=== PATIENT | male | born 1950 | race Caucasian/White ===

== ENCOUNTER → 2017-08-29 | Outpatient (CLI) | payer MEDICARE, OTHER | LOC: M.CT 10:25 | DX: M47.892 Other spondylosis, cervical region (principal); M25.78 Osteophyte, vertebrae; M48.02 Spinal stenosis, cervical region ==

== ENCOUNTER 2019-01-11 08:12 | Emergency (ER) | payer MEDICARE, OTHER ==
[~2019-01-11] VITALS: Ht 177.8 cm; Wt 108.9 kg
[2019-01-11] MEDS ORDERED: DIOVAN320 MG PO (08:21)
[2019-01-11 08:54] LABS: HEMATOCRIT 45.9 % (42.0-52.0); HEMOGLOBIN 15.5 gm/dL (14.0-18.0); MCH 32.1 pg (26.0-34.0); MCHC 33.8 g/dL (28.0-37.0); MCV 94.9 fL (80.0-100.0); MPV 7.7 fl. (7.2-11.1); NUCLEATED RBCS 0 /100WBC; PLATELET COUNT* 197 thou/uL (150-400); RBC 4.83 mil/uL (4.50-6.00); RDW-CV 14.2 % (10.5-14.5); WBC 6.3 thou/uL (4.0-11.0)
[2019-01-11 09:05] LABS: CALCIUM 8.9 mg/dL (8.5-10.1); CREATININE 1.6 mg/dL (0.6-1.3); POTASSIUM 4.2 mmol/L (3.5-5.1)
[2019-01-11 09:09] LABS: ALBUMIN 3.7 g/dL (3.4-5.0); TOTAL BILIRUBIN 0.4 mg/dL (<0.1-1.0)
[2019-01-11 09:45] LABS: ABSOLUTE LYMPHOCYTES 0.4 thou/uL (0.8-5.3); ABSOLUTE MONOCYTES 0.2 thou/uL (0.0-1.2); ABSOLUTE NEUTROPHILS 5.7 thou/uL (1.6-8.1); PLATELET ESTIMATE ADEQUATE
[2019-01-11 10:09] LABS: ESR (SEDRATE) 21 mm/hr (0-20)
[2019-01-11] MEDS ORDERED: CLEOCIN HCL300 MG PO (10:22)
[2019-01-11] MEDS ORDERED: HYDROCODON-ACE1 EAC7 PO (10:22)
[2019-01-11] MEDS ORDERED: PENICILLIN V P500 MG PO (10:22)
[2019-01-11 10:35] VITALS: BP 137/68
== END 2019-01-11 10:36 | disposition home or self-care (01) ==
LOC: M.ERS 08:12
PROVIDERS: Emergency Medicine
DX: L03.211 Cellulitis of face (principal); Z95.818 Presence of other cardiac implants and grafts; Z98.890 Other specified postprocedural states; Z88.5 Allergy status to narcotic agent

== ENCOUNTER 2019-05-22 08:43 | Emergency (ER) | payer MEDICARE, OTHER ==
[~2019-05-22] VITALS: Ht 177.8 cm; Wt 113.4 kg
[~2019-05-22 08:43] MED LIST: CLEOCIN HCL300 MG PO; DIOVAN320 MG PO; HYDROCODON-ACE1 EAC7 PO; PENICILLIN V P500 MG PO
[2019-05-22] MEDS ORDERED: CELEBREX 200 M200 M1 PO (08:56)
[2019-05-22] MEDS ORDERED: NORCO 5-325 TA1 EAC1 PO (10:01)
[2019-05-22] MEDS ORDERED: MEDROLDOSEPACK PO (10:01)
[2019-05-22 10:21] VITALS: BP 189/90
== END 2019-05-22 10:22 | disposition home or self-care (01) ==
LOC: M.ERS 08:43
DX: M13.871 Other specified arthritis, right ankle and foot (principal); M25.474 Effusion, right foot; Z88.5 Allergy status to narcotic agent

== ENCOUNTER → 2019-12-26 | Outpatient (CLI) | payer MEDICARE, OTHER ==
[~2019-12-26] MED LIST changes: +CELEBREX 200 M200 M1 PO; +MEDROLDOSEPACK PO; +NORCO 5-325 TA1 EAC1 PO
== END ==
LOC: M.LAB 07:08
PROVIDERS: ATTEND Internal Medicine Gastroenterology
DX: Z01.812 Encounter for preprocedural laboratory examination (principal); Z11.59 Encounter for screening for other viral diseases; R10.13 Epigastric pain; R13.10 Dysphagia, unspecified; Z86.010 Personal history of colon polyps

== ENCOUNTER → 2020-01-01 | Outpatient (CLI) | payer MEDICARE, OTHER | LOC: M.LAB 01:50 | PROVIDERS: ATTEND Anesthesiology | DX: E87.6 Hypokalemia (principal) ==